=== PATIENT | female | born 1995 | race Caucasian/White ===

== ENCOUNTER 2018-01-06 14:36 | Inpatient (IN) | payer OTHER ==
[~2018-01-06] VITALS: Ht 162.6 cm; Wt 106.9 kg
[~2018-01-06 14:36] MED LIST: ZONI100C36 PO
[2018-01-06 15:08] LABS: BASOPHILS # (AUTO) 0.13 x10^3/uL (0-0.3); BASOPHILS % (AUTO) 1 % (0-1); EOSINOPHILS # (AUTO) 0.04 x10^3/uL (0-0.8); EOSINOPHILS % (AUTO) 1 % (1-7); LYMPHOCYTES # (AUTO) 1.68 x10^3/uL (1-6.1); LYMPHOCYTES % (AUTO) 18 % (22-44); MD NO; MEAN CORPUSCULAR HEMOGLOBIN 29.5 pg (27.0-34.8); MEAN CORPUSCULAR HGB CONC 34.3 g/dL (32.4-35.8); MEAN CORPUSCULAR VOLUME 86.1 fL (80-100); MEAN PLATELET VOLUME 8.4 fL (7.4-10.4); MONOCYTES # (AUTO) 0.74 x10^3/uL (0-1.4); MONOCYTES % (AUTO) 8 % (2-9); NEUTROPHILS # (AUTO) 6.63 x10^3/uL (1.8-8.0); NEUTROPHILS % (AUTO) 72 % (42-75); PLATELET COUNT 291 x10^3/uL (130-400); RED BLOOD COUNT 4.38 x10^6/uL (3.82-5.3); RED CELL DISTRIBUTION WIDTH 14.4 % (9.6-15.2)
[2018-01-06 15:19] LABS: ALBUMIN 3.6 g/dL (3.4-5.0); ANION GAP 10 mmol/L (5-15); CALCIUM 8.8 mg/dL (8.5-10.1); CHLORIDE 108 mmol/L (98-107); CREATININE 1.12 mg/dL (0.55-1.02)
[2018-01-06] MEDS ORDERED: ETOMIDATE 20 MG/10 ML IV ONE (16:30)
[2018-01-06 16:44] LABS: AMPHETAMINE SCREEN, URINE Negative (Negative); BARBITURATE SCREEN, URINE Negative (Negative); BENZODIAZEPINE SCREEN, URINE Negative (Negative); CANNABINOID SCREEN, URINE Negative (Negative); COCAINE SCREEN, URINE Negative (Negative); METHADONE SCREEN, URINE Negative (Negative); OPIATE SCREEN, URINE Negative (Negative)
[2018-01-06] MEDS ORDERED: ETOMIDATE 20 MG/10 ML ONE (16:44)
[2018-01-06] MEDS ORDERED: LORazepam 2 MG/ML, 1ML ONE (16:56)
[2018-01-06] MEDS ORDERED: LORazepam 2 MG/ML, 1ML IVPush ONE (17:30)
[2018-01-06] MEDS ORDERED: LEVETIRACETAM 500 MG in SODIUM CHLORIDE 0.9% 100 ML IV ONE (19:00)
[2018-01-06] MEDS ORDERED: DOCUSATE 100 MG CAPSULE PO PRN (20:00)
[2018-01-06] MEDS ORDERED: hydrALAzine 20 MG/ML, 1ML IVPush PRN (20:00)
[2018-01-06] MEDS ORDERED: BISACODYL 10 MG SUPP PR PRN (20:00)
[2018-01-06] MEDS ORDERED: ACETAMINOPHEN 325 MG TABLET PO PRN (20:00)
[2018-01-06] MEDS ORDERED: POLYETHYLENE GLYCOL 17 GM PACKET PO PRN (20:00)
[2018-01-06] MEDS ORDERED: LORazepam 2 MG/ML, 1ML IVPush PRN (20:00)
[2018-01-06] MEDS ORDERED: LABETALOL 5MG/ML, 20ML IVPush PRN (20:00)
[2018-01-06 20:44] LABS: FREE T4 (FREE THYROXINE) 1.18 ng/dL (0.76-1.46); THYROID STIMULATING HORMONE 2.87 mIU/L (0.358-3.740)
[2018-01-06 20:55] LABS: HEMOGLOBIN A1C 5.4 % (4.2-6.3)
[2018-01-06 20:58] VITALS: BP 124/79
[2018-01-06] MEDS: SODIUM CHLORIDE 0.9% 1,000 ML IV SCH (21:12)
[2018-01-06] MEDS: HEPARIN 5,000 UNITS/ML, 1ML SQ SCH (21:13)
[2018-01-07 00:35] VITALS: BP 117/67
[2018-01-07] MEDS: SODIUM CHLORIDE 0.9% 1,000 ML IV SCH (03:16)
[2018-01-07] MEDS: HEPARIN 5,000 UNITS/ML, 1ML SQ SCH ×3 (04:20→21:38)
[2018-01-07 05:41] LABS: BASOPHILS # (AUTO) 0.01 x10^3/uL (0-0.3); BASOPHILS % (AUTO) 0 % (0-1); EOSINOPHILS # (AUTO) 0.03 x10^3/uL (0-0.8); EOSINOPHILS % (AUTO) 0 % (1-7); LYMPHOCYTES # (AUTO) 1.48 x10^3/uL (1-6.1); LYMPHOCYTES % (AUTO) 17 % (22-44); MD NO; MEAN CORPUSCULAR HEMOGLOBIN 29.7 pg (27.0-34.8); MEAN CORPUSCULAR VOLUME 87.3 fL (80-100); MEAN PLATELET VOLUME 8.5 fL (7.4-10.4); MONOCYTES % (AUTO) 8 % (2-9); NEUTROPHILS # (AUTO) 6.47 x10^3/uL (1.8-8.0); NEUTROPHILS % (AUTO) 75 % (42-75); PLATELET COUNT 263 x10^3/uL (130-400); RED BLOOD COUNT 4.04 x10^6/uL (3.82-5.3); RED CELL DISTRIBUTION WIDTH 14.8 % (9.6-15.2)
[2018-01-07 05:59] LABS: CHLORIDE 111 mmol/L (98-107)
[2018-01-07] MEDS: LEVETIRACETAM 500 MG in SODIUM CHLORIDE 0.9% 100 ML IV SCH ×2 (06:02→18:18)
[2018-01-07 06:10] LABS: ALANINE AMINOTRANSFERASE 23 U/L (12-78); ALKALINE PHOSPHATASE 59 U/L (45-117); ANION GAP 10 mmol/L (5-15); BILIRUBIN,TOTAL 0.6 mg/dL (0.2-1.0); CALCIUM 7.8 mg/dL (8.5-10.1); CHOLESTEROL, TOTAL 102 mg/dL (140-239); CREATININE 0.77 mg/dL (0.55-1.02); HDL CHOL % 33 % (28-40); HDL CHOLESTEROL (DIRECT) 34 mg/dL (40-60); LDL CHOLESTEROL,CALCULATED 47 mg/dL (54-169); LDL/HDL RATIO 1.4 (0.5-3.0); TRIGLYCERIDES 104 mg/dL (50-200); VLDL CHOLESTEROL 21 mg/dL (0-25)
[2018-01-07 06:40] VITALS: BP 156/88
[2018-01-07] MEDS: ONDANSETRON 2MG/ML, 2ML IVPush PRN ×2 (09:07→15:44)
[2018-01-07] MEDS ORDERED: POTASSIUM CHLORIDE 40 MEQ in SODIUM CHLORIDE 0.9% 500 ML IV ONE (11:00)
[2018-01-07 13:10] VITALS: BP 125/74
[2018-01-07 15:50] LABS: CULTURE INDICATED? YES; MICROSCOPIC INDICATED
[2018-01-07] MEDS ORDERED: CEFTRIAXONE 1,000 MG in SODIUM CHLORIDE 0.9% 50 ML IV SCH (18:30)
[2018-01-07 20:09] VITALS: BP 107/72
[2018-01-08 00:47] VITALS: BP 111/58
[2018-01-08 05:10] LABS: ANION GAP 8 mmol/L (5-15); CALCIUM 8.1 mg/dL (8.5-10.1); CHLORIDE 115 mmol/L (98-107)
[2018-01-08 05:11] LABS: CREATININE 0.73 mg/dL (0.55-1.02)
[2018-01-08] MEDS: HEPARIN 5,000 UNITS/ML, 1ML SQ SCH ×2 (05:22→13:43)
[2018-01-08] MEDS: LEVETIRACETAM 500 MG in SODIUM CHLORIDE 0.9% 100 ML IV SCH (05:30)
[2018-01-08 07:05] VITALS: BP 106/60
[2018-01-08] MEDS: ONDANSETRON 2MG/ML, 2ML IVPush PRN (11:49)
[2018-01-08 12:50] VITALS: BP 117/73
[2018-01-08] MEDS ORDERED: CEFD300C37 PO (14:25)
[2018-01-08] MEDS ORDERED: LEVE500T53 PO (14:25)
[2018-01-08] MEDS ORDERED: LEVETIRACETAM 500 MG TABLET PO SCH (18:00)
== END 2018-01-08 15:50 | disposition home or self-care (01) | DRG 100 ==
LOC: ED 18:30 → EDIP 19:54 → 4EST 20:39 → DCLOUNGE 01-08 15:27
PROVIDERS: ADMIT Internal Medicine; ATTEND Internal Medicine
DX: G40.409 Other generalized epilepsy and epileptic syndromes, not intractable, without status epilepticus (principal); N17.0 Acute kidney failure with tubular necrosis; N39.0 Urinary tract infection, site not specified; E87.6 Hypokalemia; S43.034A Inferior dislocation of right humerus, initial encounter; W19.XXXA Unspecified fall, initial encounter; Y93.89 Activity, other specified; Y92.89 Other specified places as the place of occurrence of the external cause; Y99.8 Other external cause status; Z90.89 Acquired absence of other organs
CPT/HCPCS: 23650; 36415; 70450; 70551; 74018; 80048; 80053; 80061; 80307; 81001; 82040; 82550; 83036; 83735; 84439; 84443; 84703; 85025; 87086; 93005; 95819; 96365; 99152; J0696; J1644; J1953; J2405; J3480; J2060; J7030; J7040